=== PATIENT | male | born 1955 | race Caucasian/White ===

== ENCOUNTER 2017-03-21 22:19 | Observation (INO) | payer BC, OTHER ==
[~2017-03-21] VITALS: Ht 182.9 cm; Wt 138.0 kg
[~2017-03-21 22:19] MED LIST: APIX5TAB PO; HYDR-3516 PO; METO50TA PO; ROSU1TAB10 PO
[2017-03-21 22:23] VITALS: BP 133/73; PULSE 68; RESP 18; TEMP 98.1; O2SAT 95
[2017-03-21] MEDS ORDERED: ROSU10 PO (22:27)
[2017-03-21] MEDS ORDERED: SODIUM CHLORIDE 0.9% FLUSH 10 ML FLUSH IVF PRN (22:30)
[2017-03-21 22:35] VITALS: O2SAT 95
--- NOTE | 2017-03-21 22:35 | PD ---
HPI Chief Complaint: Seizure Time Seen by Provider: 22:23 Travel History International Travel<30 days: No Contact w/Intl Traveler<30days: No Traveled to known affect area: No History of Present Illness HPI This report is in ERROR Please disregard this report and all prior copies ! This report is in ERROR Please disregard this report and all prior copies ! This report is in ERROR Please disregard this report and all prior copies ! PFSH Past Medical History Autoimmune Disease: No Heart Rhythm Problems: Yes (A-FIB) Cancer: No Cardiovascular Problems: Yes (AFIB) High Cholesterol: Yes Chest Pain: No Congestive Heart Failure: No Cerebrovascular Accident: Yes (2013 cva surgery ) Diabetes: No Diminished Hearing: No Endocrine: No GERD: No Genitourinary: No Headaches: Yes Hepatitis: No Hiatal Hernia: No Hypertension: Yes Immune Disorder: No Musculoskeletal: Yes (RIGHT ANKLE FX WITH METAL PLATE AND SCREWS) Neurologic: Yes (HEMORRAGIC STROKE 08/2013) Psychiatric: No Reproductive: No Respiratory: Yes (CPAP SLEEP APNEA) Seizures: No Sleep Apnea: Yes (HX, cpap machine 5 years ago) Thyroid Disease: No Ulcer: No Past Surgical History Abdominal Surgery: Yes (APPENDECTOMY) AICD: No Appendectomy: Yes Body Medical Devices: right ankle plate and screws Eye Surgery: Yes (lasik surgery) Joint Replacement: No Pacemaker: No Social History Alcohol Use: No Tobacco Use: No Substance Use: No Allergies-Medications (Allergen,Severity, Reaction): Coded Allergies: No Known Allergies (Unverified , 12/31/15) Reported Meds & Prescriptions Reported Meds & Active Scripts Active Hydrocodone-Acetaminophen 5-325 mg Tab 1 Tab PO Q6H PRN Reported Crestor (Rosuvastatin Calcium) 10 Mg Tab 10 Mg PO DAILY Eliquis (Apixaban) 5 Mg Tab 5 Mg PO BID Metoprolol Tartrate 50 Mg Tab 50 Mg PO Q12HR Review of Systems Except as stated in HPI: all other systems reviewed are Neg Physical Exam Narrative This report is in ERROR Please disregard this report and all prior copies ! This report is in ERROR Please disregard this report and all prior copies ! This report is in ERROR Please disregard this report and all prior copies ! Data Data Last Documented VS Vital Signs Date Time Temp Pulse Resp B/P (MAP) Pulse Ox O2 Delivery O2 Flow Rate FiO2 03/21/17 22:35 95 Room Air 03/21/17 22:23 98.1 68 18 133/73 (93) Orders Orders Electrocardiogram (03/21/17 22:28) Prothrombin Time / Inr (Pt) (03/21/17 22:28) Act Partial Throm Time (Ptt) (03/21/17 22:28) Complete Blood Count With Diff (03/21/17 22:28) Comprehensive Metabolic Panel (03/21/17 22:28) Drug Screen, Random Urine (03/21/17 22:28) Troponin I (03/21/17 22:28) Urinalysis - C+S If Indicated (03/21/17 22:28) Ct Brain W/O Iv Contrast(Rout) (03/21/17 22:28) Chest, Single Ap (03/21/17 22:28) Ecg Monitoring (03/21/17 22:28) Iv Access Insert/Monitor (03/21/17 22:28) Oximetry (03/21/17 22:28) Sodium Chloride 0.9% Flush (Ns Flush) (03/21/17 22:30) MDM Medical Decision Making Medical Screen Exam Complete: Yes Emergency Medical Condition: Yes Medical Record Reviewed: Yes Differential Diagnosis This report is in ERROR Please disregard this report and all prior copies ! This report is in ERROR Please disregard this report and all prior copies ! This report is in ERROR Please disregard this report and all prior copies ! Narrative Course This report is in ERROR Please disregard this report and all prior copies ! This report is in ERROR Please disregard this report and all prior copies ! This report is in ERROR Please disregard this report and all prior copies ! Kaveh Shankar Mar 21, 2017 22:35
[2017-03-21 22:54] LABS: AUTOMATED NEUTROPHIL # 7.5 TH/MM3 (1.8-7.7); BASOPHIL % 0.5 % (0.0-2.0); EOSINOPHIL # 0.2 TH/MM3 (0-0.4); EOSINOPHIL % 1.8 % (0.0-4.0); HEMATOCRIT 42.8 % (39.0-51.0); HEMOGLOBIN 14.8 GM/DL (13.0-17.0); LYMPH % 11.4 % (9.0-44.0); LYMPHOCYTE # 1.1 TH/MM3 (1.0-4.8); MEAN CORPUSCULAR HEMOGLOBIN 30.3 PG (27.0-34.0); MEAN CORPUSCULAR HGB CONC 34.5 % (32.0-36.0); MONO % 7.4 % (0.0-8.0); MONOCYTE # 0.7 TH/MM3 (0-0.9); NEUT % 78.9 % (16.0-70.0); PLATELET COUNT 183 TH/MM3 (150-450); RED BLOOD COUNT 4.87 MIL/MM3 (4.50-5.90); RED CELL DISTRIBUTION WIDTH 13.6 % (11.6-17.2); WHITE BLOOD COUNT 9.5 TH/MM3 (4.0-11.0)
--- NOTE | 2017-03-21 23:01 | RADRPT ---
EXAM DATE/TIME: 03/21/2017 22:45 [facility] COMPARISON: No previous studies available for comparison. INDICATIONS : Syncopal episode. Previous hemorrhagic stroke (2014). MEDICAL HISTORY : Deep venous thrombosis. Pulmonary embolism. SURGICAL HISTORY : Craniotomy. ENCOUNTER: Initial ACUITY: 1 day PAIN SCORE: 0/10 LOCATION: Bilateral chest FINDINGS: A single view of the chest demonstrates the lungs to be symmetrically aerated without evidence of mas s, infiltrate or effusion. The cardiomediastinal contours are unremarkable. Osseous structures are intact. CONCLUSION: No acute disease. Nirav Bagley Jr., MD on March 21, 2017 at 22:57 Board Certified Radiologist. This report was verified electronically.
[2017-03-21 23:11] LABS: INTERNATIONAL NORMALIZED RATIO 1.1 RATIO; PROTHROMBIN TIME - PATIENT 10.7 SEC (9.8-11.6)
[2017-03-21 23:21] LABS: ALBUMIN 3.9 GM/DL (3.4-5.0); AST (GOT) 26 U/L (15-37); BICARBONATE 26.5 MEQ/L (21.0-32.0); BLOOD UREA NITROGEN 15 MG/DL (7-18); CALCIUM 8.9 MG/DL (8.5-10.1); CHLORIDE 104 MEQ/L (98-107); CREATININE 1.25 MG/DL (0.60-1.30); GLOMERULAR FILTRATION RATE 59 ML/MIN (>89); GLUCOSE,RANDOM 88 MG/DL (74-106); SODIUM (NA) 137 MEQ/L (136-145)
[2017-03-21 23:22] LABS: ALT (GPT) 32 U/L (12-78)
[2017-03-21 23:25] LABS: ALKALINE PHOSPHATASE 52 U/L (45-117); TOTAL BILIRUBIN ADULT 0.4 MG/DL (0.2-1.0); TOTAL PROTEIN 7.4 GM/DL (6.4-8.2); TROPONIN I LESS THAN 0.02 NG/ML (0.02-0.05)
--- NOTE | 2017-03-21 23:29 | PD ---
HPI . Seizure Chief Complaint: Seizure Time Seen by Provider: 22:23 Travel History International Travel<30 days: No Contact w/Intl Traveler<30days: No Traveled to known affect area: No History of Present Illness HPI 61-year-old male history of head trauma and intracranial bleed in August 2012 status post craniotomy for same, presents after having spontaneous seizure despite having no prior seizure history. Patient states he was sitting at the kitchen counter watching his make dinner, reached over for something, misted knocked to the ground went to pick it up and then subsequently had a seizure. Generalized tonic-clonic as per bystanders with no focality. Patient awakened in the ambulance with poor recollection of events. Patient presents to room 60 awake and alert complains of very slight left frontal headache otherwise has no visual changes stiff neck focal weakness and Versed tingling slurred speech. Patient had tongue biting noted notable by lesions on his tongue, and also incontinence. Patient has had no recent head injuries, no fever chills sweats no rashes. Patient has a history of chronic atrial fibrillation for which she takes metoprolol for rate control and Eliquis anticoagulation. [facility] Past Medical History Narrative Medical Past medical history reviewed Autoimmune Disease: No Heart Rhythm Problems: Yes (A-FIB) Cancer: No Cardiovascular Problems: Yes (AFIB) High Cholesterol: Yes Chest Pain: No Congestive Heart Failure: No Cerebrovascular Accident: Yes (2013 cva surgery ) Diabetes: No Diminished Hearing: No Endocrine: No GERD: No Genitourinary: No Headaches: Yes Hepatitis: No Hiatal Hernia: No Hypertension: Yes Immune Disorder: No Musculoskeletal: Yes (RIGHT ANKLE FX WITH METAL PLATE AND SCREWS) Neurologic: Yes (HEMORRAGIC STROKE 08/2013) Psychiatric: No Reproductive: No Respiratory: Yes (CPAP SLEEP APNEA) Seizures: No Sleep Apnea: Yes (HX, cpap machine 5 years ago) Thyroid Disease: No Ulcer: No Tetanus Vaccination: Unknown Influenza Vaccination: No Past Surgical History Abdominal Surgery: Yes (APPENDECTOMY) AICD: No Appendectomy: Yes Body Medical Devices: right ankle plate and screws Eye Surgery: Yes (lasik surgery) Joint Replacement: No Neurologic Surgery: Yes (left side brain surgery) Pacemaker: No Other Surgery: Yes Social History Alcohol Use: Yes (occasional ) Tobacco Use: No Substance Use: No Allergies-Medications (Allergen,Severity, Reaction): Coded Allergies: No Known Allergies (Unverified Allergy, Unknown, 03/22/17) Reported Meds & Prescriptions Reported Meds & Active Scripts Active Hydrocodone-Acetaminophen 5-325 mg Tab 1 Tab PO Q6H PRN Reported Crestor (Rosuvastatin Calcium) 10 Mg Tab 10 Mg PO DAILY Eliquis (Apixaban) 5 Mg Tab 5 Mg PO BID Metoprolol Tartrate 50 Mg Tab 50 Mg PO Q12HR Narrative Medication Allergies and medications reviewed Review of Systems Except as stated in HPI: all other systems reviewed are Neg General / Constitutional: No: Fever Eyes: No: Visual changes HENT: No: Headaches Cardiovascular: No: Chest Pain or Discomfort Respiratory: No: Shortness of Breath Gastrointestinal: No: Abdominal Pain Genitourinary: Positive: Incontinence, No: Dysuria Musculoskeletal: No: Pain Skin: No Rash Neurologic: Positive: Seizures, No: Weakness Psychiatric: No: Depression Endocrine: No: Polydipsia Hematologic/Lymphatic: No: Easy Bruising Physical Exam Narrative GENERAL: Awake alert oriented 3 no acute distress SKIN: Warm and dry. Color is normal diaphoresis cyanosis or pallor HEAD: Atraumatic. Normocephalic. EYES: Pupils equal and round. No scleral icterus. No injection or drainage. ENT: No nasal bleeding or discharge. Mucous membranes pink and moist. Bilateral lateral and tongue bite sosa/crush type injury consistent with history. NECK: Trachea midline. No JVD. Supple full range of motion nontender. Voice is normal no stridor CARDIOVASCULAR: Regular rate and rhythm. S1-S2 no murmurs rubs or gallops RESPIRATORY: No accessory muscle use. Clear to auscultation. Breath sounds equal bilaterally. GASTROINTESTINAL: Abdomen soft, non-tender, nondistended. Hepatic and splenic margins not palpable. MUSCULOSKELETAL: Extremities without clubbing, cyanosis, or edema. No obvious deformities. NEUROLOGICAL: Awake and alert. No obvious cranial nerve deficits. Motor grossly within normal limits. Five out of 5 muscle strength in the arms and legs. Normal speech. PSYCHIATRIC: Appropriate mood and affect; insight and judgment normal. Data Data Last Documented VS Vital Signs Date Time Temp Pulse Resp B/P (MAP) Pulse Ox O2 Delivery O2 Flow Rate FiO2 03/21/17 22:35 95 Room Air 03/21/17 22:23 98.1 68 18 133/73 (93) Orders Orders Electrocardiogram (03/21/17 22:28) Prothrombin Time / Inr (Pt) (03/21/17 22:28) Act Partial Throm Time (Ptt) (03/21/17 22:28) Complete Blood Count With Diff (03/21/17 22:28) Comprehensive Metabolic Panel (03/21/17 22:28) Drug Screen, Random Urine (03/21/17 22:28) Troponin I (03/21/17 22:28) Urinalysis - C+S If Indicated (03/21/17 22:28) Ct Brain W/O Iv Contrast(Rout) (03/21/17 22:28) Chest, Single Ap (03/21/17 22:28) Ecg Monitoring (03/21/17 22:28) Iv Access Insert/Monitor (03/21/17 22:28) Oximetry (03/21/17 22:28) Sodium Chloride 0.9% Flush (Ns Flush) (03/21/17 22:30) Levetiracetam Inj (Keppra Inj) (03/22/17 00:00) Eeg Study (03/21/17 ) Mra Brain W/O Contrast (Cow) (03/21/17 ) Mri Brain Perfusion W/O Cont (03/21/17 ) Admit Order (Ed Use Only) (03/21/17 23:53) Consult Neurology (03/21/17 ) Labs Laboratory Tests Test 03/21/17 22:34 03/21/17 23:55 White Blood Count 9.5 TH/MM3 Red Blood Count 4.87 MIL/MM3 Hemoglobin 14.8 GM/DL Hematocrit 42.8 % Mean Corpuscular Volume 88.0 FL Mean Corpuscular Hemoglobin 30.3 PG Mean Corpuscular Hemoglobin Concent 34.5 % Red Cell Distribution Width 13.6 % Platelet Count 183 TH/MM3 Mean Platelet Volume 9.0 FL Neutrophils (%) (Auto) 78.9 % Lymphocytes (%) (Auto) 11.4 % Monocytes (%) (Auto) 7.4 % Eosinophils (%) (Auto) 1.8 % Basophils (%) (Auto) 0.5 % Neutrophils # (Auto) 7.5 TH/MM3 Lymphocytes # (Auto) 1.1 TH/MM3 Monocytes # (Auto) 0.7 TH/MM3 Eosinophils # (Auto) 0.2 TH/MM3 Basophils # (Auto) 0.0 TH/MM3 CBC Comment DIFF FINAL Differential Comment Prothrombin Time 10.7 SEC Prothromb Time International Ratio 1.1 RATIO Activated Partial Thromboplast Time 22.3 SEC Blood Urea Nitrogen 15 MG/DL Creatinine 1.25 MG/DL Random Glucose 88 MG/DL Total Protein 7.4 GM/DL Albumin 3.9 GM/DL Calcium Level 8.9 MG/DL Alkaline Phosphatase 52 U/L Aspartate Amino Transf (AST/SGOT) 26 U/L Alanine Aminotransferase (ALT/SGPT) 32 U/L Total Bilirubin 0.4 MG/DL Sodium Level 137 MEQ/L Potassium Level 4.1 MEQ/L Chloride Level 104 MEQ/L Carbon Dioxide Level 26.5 MEQ/L Anion Gap 7 MEQ/L Estimat Glomerular Filtration Rate 59 ML/MIN Troponin I LESS THAN 0.02 NG/ML Urine Color LIGHT-YELLOW Urine Turbidity CLEAR Urine pH 5.0 Urine Specific [place] 1.012 Urine Protein TRACE mg/dL Urine Glucose (UA) NEG mg/dL Urine Ketones TRACE mg/dL Urine Occult Blood MOD Urine Nitrite NEG Urine Bilirubin NEG Urine Urobilinogen LESS THAN 2.0 MG/DL Urine Leukocyte Esterase NEG Urine RBC 8 /hpf Urine WBC LESS THAN 1 /hpf Urine Hyaline Casts 1 /lpf Urine Mucus FEW /lpf Microscopic Urinalysis Comment CATH-CULT NOT IND MDM Medical Decision Making Medical Screen Exam Complete: Yes Emergency Medical Condition: Yes Medical Record Reviewed: Yes Differential Diagnosis New-onset seizure, spontaneous intracranial bleed, intracranial mass, irritable focus secondary to prior TBI Narrative Course Awaiting studies. ED wet reading CT head, no acute intracranial hemorrhage. Asymmetry and status post craniotomy. Suggest MRI follow-up with possible Case discussed with Dr. Goodson neurology. Care plan developed. Keppra 1 g load now, 500 mg 3 times a day to follow, EEG/MRI/MRA in the morning EEG. Case discussed with hospitalist service Dr Begum, admitted Diagnosis Primary Impression: Seizures Admitting Information Admitting Physician Requests: Admit Condition: Luc Arteaga MD Mar 21, 2017 23:29
--- NOTE | 2017-03-21 23:32 | RADRPT ---
EXAM DATE/TIME: 03/21/2017 23:07 [facility] COMPARISON: No previous studies available for comparison. INDICATIONS : Seizures. RADIATION DOSE: 69.15 CTDIvol (mGy) MEDICAL HISTORY : Cerebrovascular disease. Cardiovascular disease Subdural SURGICAL HISTORY : Craniotomy. ENCOUNTER: Initial ACUITY: 1 day PAIN SCALE: 0/10 LOCATION: cranial TECHNIQUE: Multiple contiguous axial images were obtained of the head. Using automated exposure control and adj ustment of the mA and/or kV according to patient size, radiation dose was kept as low as reasonably a chievable to obtain optimal diagnostic quality images. DICOM format image data is available electro nically for review and comparison. FINDINGS: CEREBRUM: The patient is status post left frontal craniotomy. There is encephalomalacia in this region. The shannon tricles are normal for age. No evidence of midline shift, mass lesion, hemorrhage or acute infarctio n. No extra-axial fluid collections are seen. POSTERIOR FOSSA: The cerebellum and brainstem are intact. The 4th ventricle is midline. The cerebellopontine angle i s unremarkable. EXTRACRANIAL: The visualized portion of the orbits is intact. There is mild maxillary sinus disease. SKULL: The calvaria is intact. No evidence of skull fracture. CONCLUSION: No acute abnormality is seen. There is a mild area of encephalomalacia at the right frontal lobe. The patient is status post right frontal craniotomy. Darell Ballard MD on March 21, 2017 at 23:28 Board Certified Radiologist. This report was verified electronically.
[2017-03-22] MEDS ORDERED: levETIRAcetam INJ 100 ML IV ONE
[2017-03-22 00:13] LABS: BILIRUBIN, URINE NEG (NEG); BLOOD, URINE MOD (NEG); GLUCOSE,URINE NEG (NEG); HYALINE CAST, URINE 1 /lpf (RARE); KETONE, URINE TRACE mg/dL (NEG); MUCUS URINE FEW /lpf (OCC); NITRITE,URINE NEG (NEG); URINE COLOR LIGHT-YELLOW (YELLW/STRAW); URINE LEUKOCYTE ESTERASE NEG (NEG)
[2017-03-22] MEDS ORDERED: NALOXONE HCL 0.4 MG/ML AMP IV PUSH PRN (00:30)
[2017-03-22] MEDS ORDERED: SODIUM CHLORIDE 0.9% FLUSH 10 ML FLUSH IV FLUSH PRN (00:30)
[2017-03-22] MEDS ORDERED: GADODIAMIDE PF 287 MG/ML 10 ML VIAL (for RAD MRI) IVCONTRAST ONE (00:56)
--- NOTE | 2017-03-22 01:42 | RADRPT ---
EXAM DATE/TIME: 03/22/2017 00:46 [facility] COMPARISON: MRA BRAIN W/O CONTRAST, March 22, 2017, 0:46. INDICATIONS : Seizures. Left sided weakness. CONTRAST: 27 cc Omniscan (gadodiamide) IV MEDICAL HISTORY : Atrial fibrillation. SURGICAL HISTORY : Right ankle, shoulder, knee and brain surgery for hemorrhage. ENCOUNTER: Initial ACUITY: 1 day PAIN SCORE: 0/10 LOCATION: Head. TECHNIQUE: Multiplanar, multisequence MRI of the brain was performed both prior to and following the administrat ion of paramagnetic contrast. FINDINGS: CEREBRUM: The ventricles and cortical sulci are mildly widened. The patient is status post left craniotomy. The re is a small area of focal encephalomalacia at the left frontal lobe. On the postcontrast images ,th ere are numerous enhancing small vessels in the right parietal lobe. There some mild increased signal on the flair images in this region. An underlying vascular lesion with some ischemic change needs to be suspected. Large feeding artery or draining veins are not seen. No mass effect is seen. No eviden ce of midline shift, mass lesion, hemorrhage or acute infarction. No extraaxial fluid collections ar e seen. The pituitary gland and suprasellar cistern are normal in configuration. WHITE MATTER: Again noted is the multiple small vessels in the right parietal white matter with associated focal ar eas of increased signal on the flair images. POSTERIOR FOSSA: The cerebellum and brainstem are intact. The 4th ventricle is midline. The cerebellopontine angle is unremarkable. The cerebellar tonsils are normal in position. DIFFUSION IMAGING: No focal areas of restricted diffusion are seen. No evidence of acute infarction. EXTRACRANIAL: The visualized portions of the orbits and paranasal sinuses are unremarkable. POST-CONTRAST: Again noted are the numerous small vessels in the right parietal white matter. No other abnormal area s of parenchymal or dural enhancement. No evidence of blood-brain barrier breakdown. CONCLUSION: 1. Multiple small vessels seen in the right parietal white matter likely secondary to an underlying v ascular lesion such as an AVM, capillary telangiectasia, or venous angioma. There are some associated punctate areas of abnormal signal in this region likely from mild focal areas of ischemia. 2. Status post left craniotomy with focal encephalomalacia at the left frontal lobe. 3. Mild atrophy. Darell Ballard MD on March 22, 2017 at 1:29 Board Certified Radiologist. This report was verified electronically.
--- NOTE | 2017-03-22 01:46 | RADRPT ---
EXAM DATE/TIME: 03/22/2017 00:46 [facility] COMPARISON: MRI BRAIN W & W/O CONTRAST, March 22, 2017, 0:46. INDICATIONS : Seizures. Left sided weakness. MEDICAL HISTORY : Atrial fibrillation. SURGICAL HISTORY : Right ankle, shoulder, knee and brain surgery for hemorrhage. ENCOUNTER: Initial ACUITY: 1 day PAIN SCORE: 0/10 LOCATION: Head. Please note a normal MRA of the brain does not entirely exclude the possibility of a small aneurysm, nor the possibility of distal intracranial vessel disease. TECHNIQUE: 3D time of flight MRA was performed. Source images, multiplanar STS MIP, and 3D volume MIP reconstru ctions were reviewed. FINDINGS: The internal carotid arteries are normal. They are seen to normally bifurcate into the anterior and m iddle cerebral arteries. The basilar artery bifurcates into the posterior cerebral arteries. There i s a patent right posterior communicating artery. There is decreased signal in the proximal right post erior cerebral artery compared to left side. This may be technical secondary to the slice location. T he more distal flow appears symmetric. A significant area the stenosis is not seen. CONCLUSION: Negative MRA. There is asymmetry with decreased signal in the proximal right posterior cerebral akhil ry compared to left which is felt to likely be technical. Darell Ballard MD on March 22, 2017 at 1:40 Board Certified Radiologist. This report was verified electronically.
[2017-03-22 02:06] VITALS: BP 140/91; PULSE 90; RESP 16; O2SAT 94
[2017-03-22] MEDS ORDERED: CYCLOBENZAPRINE HCL 10 MG TAB PO ONE (02:30)
[2017-03-22] MEDS ORDERED: ACETAMINOPHEN/HYDROcodone 325 MG/5 MG TAB PO PRN (04:00)
[2017-03-22] MEDS ORDERED: CYCLOBENZAPRINE HCL 10 MG TAB PO PRN (04:00)
--- NOTE | 2017-03-22 04:02 | HHI.HP ---
[facility] Non-Staff Admission Diagnosis New Onset Seizure vs TIA Diagnoses: Travel History International Travel<30 Days: No Contact w/Intl Traveler <30 Da: No Traveled to Known Affected Are: No History of Present Illness was at home sitting on [employer] and all of a sudden had generalized shaking did not hit head caught him mouth was foaming did have loud snoring voice never had seizures before 2013 had craniotomy on the left side was on keppra previously till jan 2014, but it was slowing him down too much, so rehab took off it no headaches or fever no ear discharge or infections Review of Systems Except as stated in HPI: all other systems reviewed are Neg Past Family Social History Past Medical History afib sleep apnea RLE DVT bilateral PE subdural hematoma- s/p left craniotomy Past Surgical History ivc filter craniotomy right ankle sx right shoulder sx left knee sx appendectomy Allergies: Coded Allergies: No Known Allergies (Unverified Allergy, Unknown, 03/22/17) Family History dad- dm Social History no smoking/ no etoh abuse/ no drugs Physical Exam Vital Signs Vital Signs Date Time Temp Pulse Resp B/P (MAP) Pulse Ox O2 Delivery O2 Flow Rate FiO2 03/22/17 02:06 90 16 140/91 (107) 94 Room Air 03/21/17 22:35 95 Room Air 03/21/17 22:23 98.1 68 18 133/73 (93) 95 Physical Exam GENERAL: This is a well-nourished, well-developed patient, in no apparent distress. SKIN: No rashes, ecchymoses or lesions. Cool and dry. HEAD: Atraumatic. Normocephalic. No temporal or scalp tenderness. EYES: No scleral icterus. No injection or drainage. ENT: N Airway patent. NECK: Trachea midline. No JVD. Supple, nontender, no meningeal signs. CARDIOVASCULAR: Regular rate and rhythm without murmurs, gallops, or rubs. RESPIRATORY: Clear to auscultation. Breath sounds equal bilaterally. No wheezes , rales, or rhonchi. GASTROINTESTINAL: Abdomen soft, non-tender, nondistended. No guarding. MUSCULOSKELETAL: Extremities without clubbing, cyanosis, or edema. No joint tenderness, effusion, or edema noted. No calf tenderness. Negative Homans sign bilaterally. NEUROLOGICAL: Awake and alert. Cranial nerves II through XII intact. Motor and sensory grossly within normal limits. Five out of 5 muscle strength in all muscle groups. Normal speech. Laboratory Laboratory Tests Test 03/21/17 22:34 03/21/17 23:55 White Blood Count 9.5 Red Blood Count 4.87 Hemoglobin 14.8 Hematocrit 42.8 Mean Corpuscular Volume 88.0 Mean Corpuscular Hemoglobin 30.3 Mean Corpuscular Hemoglobin Concent 34.5 Red Cell Distribution Width 13.6 Platelet Count 183 Mean Platelet Volume 9.0 Neutrophils (%) (Auto) 78.9 Lymphocytes (%) (Auto) 11.4 Monocytes (%) (Auto) 7.4 Eosinophils (%) (Auto) 1.8 Basophils (%) (Auto) 0.5 Neutrophils # (Auto) 7.5 Lymphocytes # (Auto) 1.1 Monocytes # (Auto) 0.7 Eosinophils # (Auto) 0.2 Basophils # (Auto) 0.0 CBC Comment DIFF FINAL Differential Comment Prothrombin Time 10.7 Prothromb Time International Ratio 1.1 Activated Partial Thromboplast Time 22.3 Blood Urea Nitrogen 15 Creatinine 1.25 Random Glucose 88 Total Protein 7.4 Albumin 3.9 Calcium Level 8.9 Alkaline Phosphatase 52 Aspartate Amino Transf (AST/SGOT) 26 Alanine Aminotransferase (ALT/SGPT) 32 Total Bilirubin 0.4 Sodium Level 137 Potassium Level 4.1 Chloride Level 104 Carbon Dioxide Level 26.5 Anion Gap 7 Estimat Glomerular Filtration Rate 59 Troponin I LESS THAN 0.02 Urine Color LIGHT-YELLOW Urine Turbidity CLEAR Urine pH 5.0 Urine Specific [place] 1.012 Urine Protein TRACE Urine Glucose (UA) NEG Urine Ketones TRACE Urine Occult Blood MOD Urine Nitrite NEG Urine Bilirubin NEG Urine Urobilinogen LESS THAN 2.0 Urine Leukocyte Esterase NEG Urine RBC 8 Urine WBC LESS THAN 1 Urine Hyaline Casts 1 Urine Mucus FEW Microscopic Urinalysis Comment CATH-CULT NOT IND Urine Opiates Screen NEG Urine Barbiturates Screen NEG Urine Amphetamines Screen NEG Urine Benzodiazepines Screen NEG Urine Cocaine Screen NEG Urine Cannabinoids Screen NEG Result Diagram: 03/21/17223303/21/172233 Imaging Last 48 hours Impressions Head Magnetic Resonance Angiography 03/22/17 0000 Signed Impressions: Service Date/Time: Wednesday, March 22, 2017 00:46 - CONCLUSION: Negative MRA. There is asymmetry with decreased signal in the proximal right posterior cerebral artery compared to left which is felt to likely be technical. Darell Ballard MD Brain MRI 03/22/17 0000 Signed Impressions: Service Date/Time: Wednesday, March 22, 2017 00:46 - CONCLUSION: 1. Multiple small vessels seen in the right parietal white matter likely secondary to an underlying vascular lesion such as an AVM, capillary telangiectasia, or venous angioma. There are some associated punctate areas of abnormal signal in this region likely from mild focal areas of ischemia. 2. Status post left craniotomy with focal encephalomalacia at the left frontal lobe. 3. Mild atrophy. Darell Ballard MD Head CT 03/21/172227 Signed Impressions: Service Date/Time: Tuesday, March 21, 2017 23:07 - CONCLUSION: No acute abnormality is seen. There is a mild area of encephalomalacia at the right frontal lobe. The patient is status post right frontal craniotomy. Darell Ballard MD Chest X-Ray 03/21/172227 Signed Impressions: Service Date/Time: Tuesday, March 21, 2017 22:45 - CONCLUSION: No acute disease. MD Parish Mccormick Jr.i VTE Risk Assessment Caprini VTE Risk Assessment: Mod/High Risk (score >= 2) Caprini Risk Assessment Model Point Value = 1 Point Value = 2 Point Value = 3 Point Value = 5 Age 41-60 Minor surgery BMI > 25 kg/m2 Swollen legs Varicose veins or History of unexplained or recurrent spontaneous Oral contraceptives or hormone replacement Sepsis (< 1 month) Serious lung disease, including pneumonia (< 1 month) Abnormal pulmonary function Acute myocardial infarction Congestive heart failure (< 1 month) History of inflammatory bowel disease Medical patient at bed rest Age 61-74 Arthroscopic surgery Major open surgery (> 45 min) Laparoscopic surgery (> 45 min) Malignancy Confined to bed (> 72 hours) Immobilizing plaster cast Central venous access Age >= 75 History of VTE Family history of VTE Factor V Leiden Prothrombin [id number] Lupus anticoagulant Anticardiolipin antibodies Elevated serum homocysteine Heparin-induced thrombocytopenia Other congenital or acquired thrombophilia Stroke (< 1 month) Elective arthroplasty Hip, pelvis, or leg fracture Acute spinal cord injury (< 1 month) Prophylaxis Regimen Total Risk Factor Score Risk Level Prophylaxis Regimen 0-1 Low Early ambulation 2 Moderate Order ONE of the following: *Sequential Compression Device (SCD) *Heparin 5000 units SQ BID 3-4 Higher Order ONE of the following medications: *Heparin 5000 units SQ TID *Enoxaparin/Lovenox 40 mg SQ daily (WT < 150 kg, CrCl > 30 mL/min) *Enoxaparin/Lovenox 30 mg SQ daily (WT < 150 kg, CrCl > 10-29 mL/min) *Enoxaparin/Lovenox 30 mg SQ BID (WT < 150 kg, CrCl > 30 mL/min) AND/OR *Sequential Compression Device (SCD) 5 or more Highest Order ONE of the following medications: *Heparin 5000 units SQ TID (Preferred with Epidurals) *Enoxaparin/Lovenox 40 mg SQ daily (WT < 150 kg, CrCl > 30 mL/min) *Enoxaparin/Lovenox 30 mg SQ daily (WT < 150 kg, CrCl > 10-29 mL/min) *Enoxaparin/Lovenox 30 mg SQ BID (WT < 150 kg, CrCl > 30 mL/min) AND *Sequential Compression Device (SCD) Assessment and Plan Assessment and Plan Impression: New-onset seizurer in a craniotomy patient Abnormal MRI brain Chronic anticoagulation on Eliquis Chronic back pain starting November 2016. afib sleep apnea RLE DVT bilateral PE subdural hematoma- s/p left craniotomy Plan: Seizure precautions. EEG. Ativan when necessary for seizures. Patient's case was discussed with neurologist distance education faculty liaison by ER physician. keppra 500 mg by mouth every 12 hours. Resume pain meds when necessary chronic back pain. MRI of the brain and MRA of the brain official reports are reviewed. . MRI of the brain: Multiple small vessels seen in the right parietal white matter likely secondary to an underlying vascular lesion such as an AVM, capillary telangiectasia, or venous angioma. There are some associated punctate areas of abnormal signal in this region likely from mild focal areas of ischemia. MRA of the brain: Negative MRA. There is asymmetry with decreased signal in the proximal right posterior cerebral artery compared to left which is felt to likely be technical I believe the above MRI findings are somewhat none specific. From history, this is highly unlikely to be ischemic etiologies/CVA. History is more consistent with seizures. However for now, would allow for permissive hypertension. Also will hold off on anticoagulation for now due to report of possible AVM. Again, I do think that this is a nonspecific. Will obtain neurology opinion regarding this and if okay with neurology, will later resume anticoagulation and antihypertensives. DVT prophylaxis with SCD Discussed Condition With Patient, at the bedside, nursing staff Physician Certification 2 Midnight Certification Type: Admission for Inpatient Services Order for Inpatient Services The services are ordered in accordance with Medicare regulations or non- Medicare payer requirements, as applicable. In the case of services not specified as inpatient-only, they are appropriately provided as inpatient services in accordance with the 2-midnight benchmark. Estimated LOS (days): 2 days is the estimated time the patient will need to remain in the hospital, assuming treatment plan goals are met and no additional complications. Post-Hospital Plan: Home Neli Begum MD Mar 22, 2017 04:02
[2017-03-22] MEDS: ATORVASTATIN 20 MG TAB PO SCH ×2 (06:57→09:00)
[2017-03-22 07:03] VITALS: BP 132/77; PULSE 87; RESP 18; O2SAT 95
[2017-03-22] MEDS ORDERED: SODIUM CHLORIDE 0.9% FLUSH 10 ML FLUSH IV FLUSH SCH (09:00)
[2017-03-22] MEDS ORDERED: APIXABAN 5 MG TABLET PO SCH (09:00)
[2017-03-22] MEDS ORDERED: levETIRAcetam 500 MG TAB PO SCH (09:00)
[2017-03-22] MEDS ORDERED: METOPROLOL TARTRATE 50 MG TAB PO SCH (09:00)
[2017-03-22] MEDS ORDERED: PHENYTOIN SODIUM 100 MG CAP PO ONE (10:00)
--- NOTE | 2017-03-22 10:02 | PD.CONS ---
History of Present Illness Service Neurology Consult Requested By medical Reason for Consult seizure Primary Care Physician Non-Staff History of Present Illness 61 y/o m admitted for witnessed seizure. was at home sitting on barstool of counter and all of a sudden had generalized shaking witnessed by . 2013 had traumatic sdh and then acute on chronic 2/2 coumadin. on eliquis for afib now. was on keppra previously till jan 2014, but dc'd 2/2 cognitive slowing. residual from this is mild expressive aphasia. no hemiparesis. is on disability. glucose 88. ct brain naicp, mri- no acute infarct. mra brain nml. uds negative. no headaches or fever. no previous hx of sz. Review of Systems Except as stated in HPI: all other systems reviewed are Neg Past Family Social History Past Medical History afib sleep apnea RLE DVT bilateral PE subdural hematoma- s/p left craniotomy Past Surgical History ivc filter craniotomy right ankle sx right shoulder sx left knee sx appendectomy Allergies: Coded Allergies: No Known Allergies (Unverified Allergy, Unknown, 03/22/17) Family History dad- dm Social History no smoking/ no etoh abuse/ no drugs Review of Systems All other ROS: ROS reviewed as documented in chart Past Family Social History Allergies: Coded Allergies: No Known Allergies (Unverified Allergy, Unknown, 03/22/17) Active Ordered Medications Current Medications Medications (Trade) Dose Ordered Sig/Sony Route Start Time Stop Time Status Last Admin (NS Flush) 2 ml UNSCH PRN IV FLUSH 03/22/17 00:30 03/22/17 00:41 (NS Flush) 2 ml BID IV FLUSH 03/22/17 09:00 (Narcan Inj) 0.4 mg UNSCH PRN IV PUSH 03/22/17 00:30 ([place] 5-325 Mg) 1 tab Q4H PRN PO 03/22/17 04:00 03/22/17 07:26 (Flexeril) 5 mg Q8H PRN PO 03/22/17 04:00 (Lipitor) 20 mg DAILY PO 03/22/17 04:15 03/22/17 06:57 (Keppra) 500 mg Q12HR PO 03/22/17 09:00 03/22/17 09:39 Exam I&O / VS Vital Signs Date Time Temp Pulse Resp B/P (MAP) Pulse Ox O2 Delivery O2 Flow Rate FiO2 03/22/17 07:03 87 18 132/77 (95) 95 Room Air 03/22/17 02:06 90 16 140/91 (107) 94 Room Air 03/21/17 22:35 95 Room Air 03/21/17 22:23 98.1 68 18 133/73 (93) 95 General: No acute distress Eye: EOMI Respiratory: Non-labored respirations Neurologic: Alert, CN II-XII intact, Normal DTR's Psychiatric: Cooperative, Appropriate mood & affect Exam Comments sleeping, easily arousable, mild expressive aphasia, olivera to gravity Review/Management Diagnosis/Plan: (1) Seizures ICD Codes: R56.9 - Unspecified convulsions Status: Acute Plan: probable post-traumatic sz recs eeg start dilantin p.t. eval sz precautions d/c planning tomorrow no driving/climbaing heights/swimming for at least 6 months of being sz free (2) A-fib ICD Codes: I48.91 - Atrial fibrillation Status: Chronic (3) S/P craniotomy ICD Codes: Z98.89 - Status post craniotomy Status: Chronic (4) Impaired gait ICD Codes: R26.9 - Impaired gait Status: Chronic Abdon Horton MD Mar 22, 2017 10:02
[2017-03-22 11:10] VITALS: BP 122/86; PULSE 82; RESP 18; O2SAT 95
[2017-03-22] MEDS ORDERED: LEVE500 PO (13:50)
--- NOTE | 2017-03-22 13:51 | HHI.DCPOC ---
Discharge Care Plan Diagnosis: (1) Seizures (2) A-fib (3) Chronic pain (4) Expressive aphasia Goals to Promote Your Health * To prevent worsening of your condition and complications * To maintain your health at the optimal level Directions to Meet Your Goals Take your medications as prescribed Follow your dietary instruction Follow activity as directed Keep your appointments as scheduled Take your immunizations and boosters as scheduled If your symptoms worsen call your PCP, if no PCP go to Urgent Care Center or Emergency Room Smoking is Dangerous to Your Health. Avoid second hand smoke Call the 24-hour hour crisis hotline for domestic abuse at Demond Alonzo MD Mar 22, 2017 13:51
[2017-03-22 13:53] LABS: MAGNESIUM 2.7 MG/DL (1.5-2.5)
[2017-03-22 13:54] LABS: PHENYTOIN (DILANTIN) 2.7 MCG/ML (10.0-20.0)
[2017-03-22] MEDS ORDERED: PHENYTOIN SODIUM 100 MG CAP PO SCH (14:00)
--- NOTE | 2017-03-22 14:29 | HHI.PR ---
Subjective Remarks Patient examined today. He reports he is feeling great. His significant other at bedside. They report he did not have significant adverse effect from Keppra and they want him to go back on Keppra instead of Dilantin because they are worried about interactions of Dilantin with Eliquis. Objective Vitals Vital Signs Date Time Temp Pulse Resp B/P (MAP) Pulse Ox O2 Delivery O2 Flow Rate FiO2 03/22/17 11:10 82 18 122/86 (98) 95 Room Air 03/22/17 10:37 18 03/22/17 07:03 87 18 132/77 (95) 95 Room Air 03/22/17 02:06 90 16 140/91 (107) 94 Room Air 03/21/17 22:35 95 Room Air 03/21/17 22:23 98.1 68 18 133/73 (93) 95 I/O 03/21/17 03/21/17 03/21/17 03/22/17 03/22/17 03/22/17 07:00 15:00 23:00 07:00 15:00 23:00 Intake Total 100 ml Balance 100 ml Intake IV Total 100 ml Result Diagram: 03/21/17223303/21/172233 Objective Remarks GENERAL: This is a well-nourished, well-developed patient, in no apparent distress. CARDIOVASCULAR: Normal rate and regular rhythm without murmurs, gallops, or rubs. RESPIRATORY: Good respiratory efforts. Breath sounds equal and clear to auscultation bilaterally. GASTROINTESTINAL: Abdomen soft, non-tender, non-distended. Normal active bowel sounds MUSCULOSKELETAL: Extremities without cyanosis, or edema. NEURO: Alert & Oriented x4 to person, place, time, situation. Moves all ext x4 PSYCH: Appropriate mood and affect. A/P Assessment and Plan 61-year-old male with history of traumatic subdural hemorrhage presented with new onset seizures. The patient was previously on Keppra until January 2014 but that was discontinued because he was reportedly sleeping more with Keppra. Patient was admitted and seen by neurology. MRI and MRA did not reveal any acute changes. He was started on Dilantin. However the patient family requested that he be switched back to Keppra instead because they are concerned about drug interaction with Eliquis. I discussed this with neurologist, okay to discharge the patient home on Keppra per the family's preference. Patient and family advised to follow-up outpatient with neurology. He was advised to not drive, do not operate heavy machinery, no swimming. Demond Alonzo MD Mar 22, 2017 14:29
--- NOTE | 2017-03-22 14:44 | EKG ---
Date Performed: 03/21/2017 Time Performed: 22:28:24 PTAGE: 61 years EKG: ATRIAL FIBRILLATION ABNORMAL RHYTHM ECG Since PREVIOUS TRACING , no significant change noted PREVIOUS TRACIN08/31/2013 10.49 DOCTOR: Alona Jesus Interpretating Date/Time 03/22/2017 14:43:51
--- NOTE | 2017-03-22 19:09 | MG ---
cc: TIFFANIE MÉNDEZ M.D. Sex: M [id number] INTRODUCTION: The patient is a 61 year-old man, right parietal white matter changes, generalized tonic-clonic seizure. MEDICATIONS: Keppra. [place]. Lipitor. DESCRIPTION: At times some diffuse 6 hertz slowing is seen. A lot of beta rhythms are noted which were consistent with a medication effect. He is noted to be clinically asleep and snoring. He does not quite reach stage II sleep. A 9 hertz 60 microvolt symmetric posterior rhythm is at times noted even during the sleep state. Photic stimulation was performed without significant posterior driving. IMPRESSION Some medication effect otherwise a generally unremarkable sleep EEG. MD BENNETT Ramachandran/EDITH /6:25 PM /6:48 PM
== END 2017-03-22 15:17 | disposition home or self-care (01) ==
LOC: NEPE 22:19 → NEDA 03-22 → NEDH 03-22 04:41 → NEPFCDU 03-22 13:41
PROVIDERS: ADMIT Family Medicine; ATTEND Family Medicine
DX: R56.9 Unspecified convulsions (principal); R55 Syncope and collapse; R06.83 Snoring; R47.01 Aphasia; R26.9 Unspecified abnormalities of gait and mobility; R94.31 Abnormal electrocardiogram [ECG] [EKG]; R53.1 Weakness; R32 Unspecified urinary incontinence; I10 Essential (primary) hypertension; E78.00 Pure hypercholesterolemia, unspecified; I48.2 Chronic atrial fibrillation; G47.30 Sleep apnea, unspecified; G93.89 Other specified disorders of brain; M54.9 Dorsalgia, unspecified; G89.29 Other chronic pain; Z86.718 Personal history of other venous thrombosis and embolism; Z86.73 Personal history of transient ischemic attack (TIA), and cerebral infarction without residual deficits; Z79.01 Long term (current) use of anticoagulants
CPT/HCPCS: 70450; 70544; 70553; 71045; 80053; 80185; 80307; 81001; 83735; 84484; 85025; 85610; 85730; 93005; 95819; 96365; 99285; A9579; G0378; J1953

== ENCOUNTER 2017-04-09 04:22 | Emergency (ER) | payer OTHER ==
[~2017-04-09] VITALS: Ht 182.9 cm; Wt 132.0 kg
[~2017-04-09 04:22] MED LIST changes: +LEVE500 PO; +ROSU10 PO; -ROSU1TAB10 PO
[2017-04-09] MEDS ORDERED: LAMO25 PO (04:35)
[2017-04-09] MEDS ORDERED: LEVE250 PO (04:35)
[2017-04-09 04:37] VITALS: BP 135/78; PULSE 88; RESP 18; TEMP 98.7; O2SAT 96
[2017-04-09 04:49] LABS: BASOPHIL # 0.1 TH/MM3 (0-0.2); EOSINOPHIL # 0.1 TH/MM3 (0-0.4); EOSINOPHIL % 1.3 % (0.0-4.0); HEMATOCRIT 45.2 % (39.0-51.0); HEMOGLOBIN 15.7 GM/DL (13.0-17.0); LYMPH % 11.1 % (9.0-44.0); LYMPHOCYTE # 1.1 TH/MM3 (1.0-4.8); MEAN CELL VOLUME 87.8 FL (80.0-100.0); MEAN CORPUSCULAR HEMOGLOBIN 30.4 PG (27.0-34.0); MEAN CORPUSCULAR HGB CONC 34.7 % (32.0-36.0); MEAN PLATELET VOLUME 7.6 FL (7.0-11.0); MONO % 6.9 % (0.0-8.0); MONOCYTE # 0.7 TH/MM3 (0-0.9); NEUT % 79.7 % (16.0-70.0); PLATELET COUNT 191 TH/MM3 (150-450); RED BLOOD COUNT 5.15 MIL/MM3 (4.50-5.90); RED CELL DISTRIBUTION WIDTH 13.3 % (11.6-17.2)
[2017-04-09 05:07] LABS: BACTERIA, URINE RARE /hpf; BILIRUBIN, URINE NEG (NEG); BLOOD, URINE TRACE (NEG); GLUCOSE,URINE NEG (NEG); HYALINE CAST, URINE 1 /lpf (RARE); KETONE, URINE TRACE mg/dL (NEG); MUCUS URINE FEW /lpf (OCC); NITRITE,URINE NEG (NEG); URINE COLOR YELLOW (YELLW/STRAW); URINE LEUKOCYTE ESTERASE NEG (NEG)
--- NOTE | 2017-04-09 05:15 | RADRPT ---
EXAM DATE/TIME: 04/09/2017 04:58 [facility] COMPARISON: CT BRAIN W/O CONTRAST, March 21, 2017, 23:07. INDICATIONS : Dizziness; history of prior subdural. RADIATION DOSE: 40.85 CTDIvol (mGy) MEDICAL HISTORY : Cerebrovascular disease. Seizures. Deep venous thrombosis.A-Fib SURGICAL HISTORY : Appendectomy. Craniotomy. ENCOUNTER: Initial ACUITY: 1 day PAIN SCALE: 0/10 LOCATION: cranial TECHNIQUE: Multiple contiguous axial images were obtained of the head. Using automated exposure control and adj ustment of the mA and/or kV according to patient size, radiation dose was kept as low as reasonably a chievable to obtain optimal diagnostic quality images. DICOM format image data is available electro nically for review and comparison. FINDINGS: There is mild widening loss. No signs of acute infarct, intracranial hemorrhage, or mass. Osseous str uctures are intact. Previous left frontal craniotomy. Stable focal encephalomalacia left frontal kortney on. CONCLUSION: No significant change has occurred. Mekhi Abbott MD on April 09, 2017 at 5:12 Board Certified Radiologist. This report was verified electronically.
[2017-04-09 05:40] LABS: ALKALINE PHOSPHATASE 60 U/L (45-117); ALT (GPT) 31 U/L (12-78); PHOSPHORUS 1.9 MG/DL (2.5-4.9); TOTAL BILIRUBIN ADULT 0.3 MG/DL (0.2-1.0); TOTAL PROTEIN 7.4 GM/DL (6.4-8.2); TROPONIN I LESS THAN 0.02 NG/ML (0.02-0.05)
[2017-04-09 05:51] LABS: ALBUMIN 3.8 GM/DL (3.4-5.0); AST (GOT) 25 U/L (15-37); BICARBONATE 22.4 MEQ/L (21.0-32.0); BLOOD UREA NITROGEN 17 MG/DL (7-18); CALCIUM 9.1 MG/DL (8.5-10.1); CHLORIDE 109 MEQ/L (98-107); CREATININE 1.55 MG/DL (0.60-1.30); GLOMERULAR FILTRATION RATE 46 ML/MIN (>89); GLUCOSE,RANDOM 124 MG/DL (74-106); MAGNESIUM 2.4 MG/DL (1.5-2.5); SODIUM (NA) 141 MEQ/L (136-145)
[2017-04-09 05:54] LABS: ACETAMINOPHEN LESS THAN 2.0 MCG/ML (10.0-30.0)
[2017-04-09] MEDS ORDERED: POTASSIUM PHOSPHATE/SODIUM PHOSPHATE 250 MG TAB PO ONE (06:00)
--- NOTE | 2017-04-09 06:35 | PD ---
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 Now he has been off Her for years month ago he had a seizure came to the ER was started back on Keppra his neurologist Juliocesar has been trying to taper him off the Keppra and start Lamictal yesterday was his first day with her and only Lamictal and the patient had a seizure last night according to the . He had no trauma he did not fall he had tonic-clonic activity while lying in the recliner and they come to the ER patient is wide awake alert reports he did have post ictal voiding and he was confused for over an hour in the ER patient seems alert oriented 3 PFSH Past Medical History Autoimmune Disease: No Heart Rhythm Problems: Yes (A-FIB) Cancer: No Cardiovascular Problems: Yes (AFIB) High Cholesterol: Yes Chest Pain: No Congestive Heart Failure: No Cerebrovascular Accident: Yes (2014 cva surgery ) Diabetes: No Diminished Hearing: No Endocrine: No GERD: No Genitourinary: No Headaches: Yes Hepatitis: No Hiatal Hernia: No Hypertension: Yes Immune Disorder: No Implanted Vascular Access Dvce: Yes Musculoskeletal: Yes (RIGHT ANKLE FX WITH METAL PLATE AND SCREWS) Neurologic: Yes (HEMORRAGIC STROKE 08/2013) Psychiatric: No Reproductive: No Respiratory: Yes (CPAP SLEEP APNEA) Immunizations Current: Yes Seizures: Yes (NEW ONSET DX MAR 2017) Sleep Apnea: Yes Thyroid Disease: No Ulcer: No Past Surgical History Abdominal Surgery: Yes (APPENDECTOMY) AICD: No Appendectomy: Yes Body Medical Devices: right ankle plate and screws Eye Surgery: Yes (lasik surgery) Joint Replacement: No Neurologic Surgery: Yes (left side brain surgery) Pacemaker: No Other Surgery: Yes Social History Alcohol Use: Yes (occasional ) Tobacco Use: No Substance Use: No Allergies-Medications (Allergen,Severity, Reaction): Coded Allergies: No Known Allergies (Unverified Allergy, Unknown, 03/22/17) Reported Meds & Prescriptions Reported Meds & Active Scripts Active Hydrocodone-Acetaminophen 5-325 mg Tab 1 Tab PO Q6H PRN Reported Lamictal (Lamotrigine) 25 Mg Tab 25 Mg PO BID Keppra (Levetiracetam) 250 Mg Tab 250 Mg PO DAILY Crestor (Rosuvastatin Calcium) 10 Mg Tab 10 Mg PO DAILY Eliquis (Apixaban) 5 Mg Tab 5 Mg PO BID Metoprolol Tartrate 50 Mg Tab 50 Mg PO Q12HR Review of Systems Except as stated in HPI: all other systems reviewed are Neg Neurologic: Positive: Seizures Physical Exam Narrative GENERAL: awake alert not post ictal when I enter room SKIN: Warm and dry. HEAD: Atraumatic. Normocephalic. EYES: Pupils equal and round. No scleral icterus. No injection or drainage. ENT: No nasal bleeding or discharge. Mucous membranes pink and moist. NECK: Trachea midline. No JVD. CARDIOVASCULAR: Regular rate and rhythm. RESPIRATORY: No accessory muscle use. Clear to auscultation. Breath sounds equal bilaterally. GASTROINTESTINAL: Abdomen soft, non-tender, nondistended. Hepatic and splenic margins not palpable. MUSCULOSKELETAL: Extremities without clubbing, cyanosis, or edema. No obvious deformities. NEUROLOGICAL: Awake and alert. No obvious cranial nerve deficits. Motor grossly within normal limits. Five out of 5 muscle strength in the arms and legs. Normal speech. PSYCHIATRIC: Appropriate mood and affect; insight and judgment normal. Data Data Last Documented VS Vital Signs Date Time Temp Pulse Resp B/P (MAP) Pulse Ox O2 Delivery O2 Flow Rate FiO2 04/09/17 07:01 04/09/17 04:37 98.7 88 18 96 Room Air Orders Orders Complete Blood Count With Diff (04/09/17 04:34) Comprehensive Metabolic Panel (04/09/17 04:34) Ckmb (Isoenzyme) Profile (04/09/17 04:34) Troponin I (04/09/17 04:34) Lipase (04/09/17 04:34) Urinalysis - C+S If Indicated (04/09/17 04:34) Magnesium (Mg) (04/09/17 04:34) Phosphorus (Po4) (04/09/17 04:34) Drug Screen, Random Urine (04/09/17 04:34) Alcohol (Ethanol) (04/09/17 04:34) Salicylates (Aspirin) (04/09/17 04:34) Tylenol (Acetaminophen) (04/09/17 04:34) Ct Brain W/O Iv Contrast(Rout) (04/09/17 ) CKMB (04/09/17 04:38) CKMB% (04/09/17 04:38) Potassium Phos-Sodium Phos (K-Phos Neutr (04/09/17 06:00) Levetiracetam (Keppra) (04/09/17 06:45) Ed Discharge Order (04/09/17 06:36) Labs Laboratory Tests Test 04/09/17 04:38 White Blood Count 10.0 TH/MM3 Red Blood Count 5.15 MIL/MM3 Hemoglobin 15.7 GM/DL Hematocrit 45.2 % Mean Corpuscular Volume 87.8 FL Mean Corpuscular Hemoglobin 30.4 PG Mean Corpuscular Hemoglobin Concent 34.7 % Red Cell Distribution Width 13.3 % Platelet Count 191 TH/MM3 Mean Platelet Volume 7.6 FL Neutrophils (%) (Auto) 79.7 % Lymphocytes (%) (Auto) 11.1 % Monocytes (%) (Auto) 6.9 % Eosinophils (%) (Auto) 1.3 % Basophils (%) (Auto) 1.0 % Neutrophils # (Auto) 8.0 TH/MM3 Lymphocytes # (Auto) 1.1 TH/MM3 Monocytes # (Auto) 0.7 TH/MM3 Eosinophils # (Auto) 0.1 TH/MM3 Basophils # (Auto) 0.1 TH/MM3 CBC Comment DIFF FINAL Differential Comment Urine Color YELLOW Urine Turbidity CLEAR Urine pH 6.0 Urine Specific [place] 1.018 Urine Protein 30 mg/dL Urine Glucose (UA) NEG mg/dL Urine Ketones TRACE mg/dL Urine Occult Blood TRACE Urine Nitrite NEG Urine Bilirubin NEG Urine Urobilinogen LESS THAN 2.0 MG/DL Urine Leukocyte Esterase NEG Urine RBC 1 /hpf Urine WBC 1 /hpf Urine Bacteria RARE /hpf Urine Hyaline Casts 1 /lpf Urine Granular Casts 1 /lpf Urine Mucus FEW /lpf Microscopic Urinalysis Comment CULT NOT INDICATED Blood Urea Nitrogen 17 MG/DL Creatinine 1.55 MG/DL Random Glucose 124 MG/DL Total Protein 7.4 GM/DL Albumin 3.8 GM/DL Calcium Level 9.1 MG/DL Phosphorus Level 1.9 MG/DL Magnesium Level 2.4 MG/DL Alkaline Phosphatase 60 U/L Aspartate Amino Transf (AST/SGOT) 25 U/L Alanine Aminotransferase (ALT/SGPT) 31 U/L Total Bilirubin 0.3 MG/DL Sodium Level 141 MEQ/L Potassium Level 3.9 MEQ/L Chloride Level 109 MEQ/L Carbon Dioxide Level 22.4 MEQ/L Anion Gap 10 MEQ/L Estimat Glomerular Filtration Rate 46 ML/MIN Total Creatine Kinase 187 U/L Creatine Kinase MB 2.8 NG/ML Troponin I LESS THAN 0.02 NG/ML Lipase 196 U/L Salicylates Level LESS THAN 1.7 MG/DL Urine Opiates Screen NEG Acetaminophen Level LESS THAN 2.0 MCG/ML Urine Barbiturates Screen NEG Urine Amphetamines Screen NEG Urine Benzodiazepines Screen NEG Urine Cocaine Screen NEG Urine Cannabinoids Screen NEG Ethyl Alcohol Level LESS THAN 3 MG/DL MDM Medical Decision Making Medical Screen Exam Complete: Yes Emergency Medical Condition: Yes Differential Diagnosis Differential diagnosis includes seizure secondary to withdrawal of Keppra versus idiopathic seizure patient is in the ER without any complaint of trauma the differential would be trauma from the tonic-clonic activity however he was in the his recliner at home and no fall no trauma Narrative Course CT head is negative mag is normal calcium is normal phosphorus is minimally low we replaced the oral he and give him Keppra 500 and tell him to resume his Keppra regimen prior to the taper down for Lamictal 500 Keppra twice a day called neurology in the morning return for any worsening symptoms Diagnosis Primary Impression: Seizure-like activity Patient Instructions: General Instructions, Generalized Tonic Clonic Seizures ( ED) Disposition: 01 DISCHARGE HOME Condition: Ace Ac MD Apr 09, 2017 06:35
[2017-04-09] MEDS ORDERED: levETIRAcetam 500 MG TAB PO ONE (06:45)
== END 2017-04-09 07:08 | disposition home or self-care (01) ==
LOC: NEPC 04:22
DX: R56.9 Unspecified convulsions (principal); I48.91 Unspecified atrial fibrillation; E78.00 Pure hypercholesterolemia, unspecified; I10 Essential (primary) hypertension; G47.30 Sleep apnea, unspecified; Z86.73 Personal history of transient ischemic attack (TIA), and cerebral infarction without residual deficits
CPT/HCPCS: 70450; 80053; 80307; 81001; 82550; 82552; 83690; 83735; 84100; 84484; 85025